=== PATIENT | female | born 1960 | race African-American/Black ===

== ENCOUNTER 2021-10-27 13:10 | Emergency (ER) | payer BC ==
[~2021-10-27] VITALS: Ht 170.2 cm; Wt 51.0 kg
[2021-10-27] MEDS ORDERED: KETOROLAC 15MG/ML VIAL IM ONE (16:45)
[2021-10-27 17:16] VITALS: BP 181/94
== END 2021-10-27 17:18 | disposition home or self-care (01) ==
LOC: ER 13:10
DX: S93.401A Sprain of unspecified ligament of right ankle, initial encounter (principal); Z90.710 Acquired absence of both cervix and uterus; W01.0XXA Fall on same level from slipping, tripping and stumbling without subsequent striking against object, initial encounter; Y93.89 Activity, other specified; Y92.218 Other school as the place of occurrence of the external cause; Y99.8 Other external cause status
CPT/HCPCS: 73610; 73630; 96372; 99284; J1885